=== PATIENT | female | born 1995 | race Caucasian/White ===

== ENCOUNTER 2016-09-13 13:50 | Emergency (ER) | payer OTHER | END 2016-09-13 15:21 | disposition left against medical advice (07) | LOC: UCCORT 13:50 | DX: R09.89 Other specified symptoms and signs involving the circulatory and respiratory systems (principal); Z53.21 Procedure and treatment not carried out due to patient leaving prior to being seen by health care provider ==

== ENCOUNTER 2017-04-11 16:43 | Emergency (ER) | payer OTHER ==
[2017-04-11 17:39] VITALS: BP 122/75
--- NOTE | 2017-04-11 17:49 | UC ---
Respiratory Complaint HPI - HPI Summary HPI Summary: Pt c/o of waking this morning with difficulty breathing. C?o sudden onset of wheezing. Pt states that she used her albuterol inhaler with relief of symptoms. Pt is sitting comfortably in exam room and denies wheezing or sob currently - History of Current Complaint Chief Complaint: UCGeneralIllness Stated Complaint: TROUBLE BREATHING Time Seen by Provider: 04/11/17 17:29 Hx Obtained From: Patient Hx Last Menstrual Period: 04/10/17 ?: No Onset/Duration: Sudden Onset, Resolved Severity Initially: Moderate Severity Currently: None Character: Cough: Nonproductive Alleviating Factors: Bronchodilator Associated Signs And Symptoms: Positive: Wheezing - Risk Factors Pulmonary Embolism Risk Factors: Smoking Cardiac Risk Factors: Smoking Pseudomonas Risk Factors: Negative Tuberculosis Risk Factors: Negative - Allergies/Home Medications Allergies/Adverse Reactions: Allergies Allergy/AdvReac Type Severity Reaction Status Date / Time No Known Allergies Allergy Verified 04/11/17 17:30 PMH/Surg Hx/FS Hx/Imm Hx Previously Healthy: Yes Respiratory History: Asthma - Surgical History Surgical History: None - Family History Known Family History: Positive: Unknown - Social History Occupation: Employed Full-time Lives: With Family Alcohol Use: Weekly Substance Use Type: Marijuana Substance Use Comment - Amount & Last Used: yesterday 04/10/17 Smoking Status (MU): Current Every Day Smoker Type: Cigarettes Amount Used/How Often: 2-3 PPD Have You Smoked in the Last Year: Yes Household Exposure Type: Cigarettes - Immunization History Most Recent Influenza Vaccination: no 2017 Vaccination Up to Date: Yes Review of Systems Constitutional: Negative Skin: Negative Eyes: Negative ENT: Negative Respiratory: Shortness Of Breath, Cough Cardiovascular: Negative Gastrointestinal: Negative Genitourinary: Negative Motor: Negative Neurovascular: Negative Musculoskeletal: Negative Neurological: Negative Psychological: Negative Is Patient Immunocompromised?: No All Other Systems Reviewed And Are Negative: Yes Physical Exam Triage Information Reviewed: Yes Appearance: Well-Appearing Vital Signs: Initial Vital Signs Temp 98.2 F 04/11/17 17:30 Pulse 79 04/11/17 17:30 Resp 22 04/11/17 17:30 BP 122/75 04/11/17 17:30 Pulse Ox 100 04/11/17 17:30 Vital Signs Reviewed: Yes Eye Exam: Normal ENT Exam: Normal Dental Exam: Normal Neck exam: Normal Respiratory Exam: Normal Cardiovascular Exam: Normal Musculoskeletal Exam: Normal Neurological Exam: Normal Psychological Exam: Normal Skin Exam: Normal UC Diagnostic Evaluation - Laboratory O2 Sat by Pulse Oximetry: 100 Respiratory Course/Dx - Differential Dx/Diagnosis Differential Diagnosis/HQI/PQRI: Asthma, Bronchitis Provider Diagnoses: reactive airway Discharge - Discharge Plan Condition: Stable Disposition: HOME Prescriptions: Albuterol HFA INHALER* [Ventolin HFA Inhaler*] 2 puff INH Q4H PRN #1 mdi PRN Reason: Sob/Wheezing methylPREDNISolone TAB* [Medrol TAB*] 4 - 8 mg PO .SEE SALVADOR #1 salvador Patient Education Materials: Reactive Airways Disease (ED) Referrals: No Primary Care Phys,NOPCP [Primary Care Provider] - As Soon As Possible
== END 2017-04-11 17:56 | disposition home or self-care (01) ==
LOC: UCCORT 16:43
DX: J45.909 Unspecified asthma, uncomplicated (principal); F12.90 Cannabis use, unspecified, uncomplicated; F17.210 Nicotine dependence, cigarettes, uncomplicated
CPT/HCPCS: 99212; G0463

== ENCOUNTER 2017-04-23 11:16 | Emergency (ER) | payer OTHER | END 2017-04-23 12:00 | disposition left against medical advice (07) | LOC: UCCORT 11:16 | DX: R09.89 Other specified symptoms and signs involving the circulatory and respiratory systems (principal); Z53.21 Procedure and treatment not carried out due to patient leaving prior to being seen by health care provider ==

== ENCOUNTER → 2017-04-26 13:59 | Emergency (ER) | payer OTHER | END | disposition left against medical advice (07) | LOC: UCCORT 13:59 | DX: R05 Cough (principal); Z53.21 Procedure and treatment not carried out due to patient leaving prior to being seen by health care provider ==

== ENCOUNTER 2017-06-10 21:06 | Emergency (ER) | payer OTHER ==
[2017-06-10 21:24] VITALS: BP 106/64
[2017-06-10] MEDS ORDERED: Amoxicillin PO (*) 500 MG CAP PO ONE (21:47)
--- NOTE | 2017-06-10 21:53 | UC ---
Ear Complaint HPI - HPI Summary HPI Summary: 21 yo female with about a week hx of sore throat and left EA ear ache is the worse symptoms states her tonsils are alway large no fever decreased hearing left ear - History of Current Complaint Chief Complaint: UCRespiratory Stated Complaint: SORE THROAT/EAR PAIN Time Seen by Provider: 06/10/17 21:41 Hx Obtained From: Patient Hx Last Menstrual Period: 06/05/17 Onset/Duration: Gradual Onset, Lasting Days Severity Initially: Mild Severity Currently: Severe Pain Intensity: 8 Pain Scale Used: 0-10 Numeric Alleviating Factors: Nothing Associated Signs/Symptoms: Positive: URI Symptoms - Allergies/Home Medications Allergies/Adverse Reactions: Allergies Allergy/AdvReac Type Severity Reaction Status Date / Time No Known Allergies Allergy Verified 06/10/17 21:24 Home Medications: Home Medications Guaifen/Dextromethorphan/PE [Robitussin Childrens Coug] 1 liq PO ONCE PRN [History Confirmed 06/10/17] PMH/Surg Hx/FS Hx/Imm Hx Previously Healthy: Yes - recent fentenyl OD - Surgical History Surgical History: None - Family History Known Family History: Positive: Hypertension - Social History Alcohol Use: None Substance Use Type: Marijuana, Other Substance Use Comment - Amount & Last Used: over dosed on fentanol 3 weeks ago, in out pt rehab Smoking Status (MU): Heavy Every Day Tobacco Smoker Type: Cigarettes Amount Used/How Often: 1/2 ppd Length of Time of Smoking/Using Tobacco: since age 20 Have You Smoked in the Last Year: Yes Household Exposure Type: Cigarettes - Immunization History Most Recent Influenza Vaccination: no 2017 Vaccination Up to Date: Yes Review of Systems Constitutional: Negative Skin: Negative Eyes: Negative ENT: Sore Throat, Ear Ache Respiratory: Negative Cardiovascular: Negative Gastrointestinal: Negative Genitourinary: Negative Motor: Negative Neurovascular: Negative Musculoskeletal: Negative Neurological: Negative Psychological: Negative Is Patient Immunocompromised?: No All Other Systems Reviewed And Are Negative: Yes Physical Exam Triage Information Reviewed: Yes Appearance: Well-Appearing, No Pain Distress, Well-Nourished Vital Signs: Initial Vital Signs Temp 97.4 F 06/10/17 21:17 Pulse 89 06/10/17 21:17 Resp 16 06/10/17 21:17 BP 106/64 06/10/17 21:17 Pulse Ox 99 06/10/17 21:17 Vital Signs Reviewed: Yes Eyes: Positive: Conjunctiva Clear ENT: Positive: TM bulging - left, TM red - left, Tonsillar swelling Neck: Positive: Supple, Nontender, No Lymphadenopathy Respiratory: Positive: Lungs clear, Normal breath sounds, No respiratory distress, No accessory muscle use Cardiovascular: Positive: RRR, No Murmur Musculoskeletal: Positive: ROM Intact, No Edema Neurological: Positive: Alert Psychological Exam: Normal Skin Exam: Normal Ear Complaint Course/Dx - Differential Dx/Diagnosis Provider Diagnoses: left otitis media Discharge - Discharge Plan Condition: Stable Disposition: HOME Prescriptions: Amoxicillin PO (*) [Amoxicillin 875 MG (*)] 875 mg PO BID #20 tab Patient Education Materials: Ear Infection (ED) Referrals: Malissa Shah MD [Primary Care Provider] - 4 Days (if pain not better)
== END 2017-06-10 21:55 | disposition home or self-care (01) ==
LOC: UCCORT 21:06
DX: H66.92 Otitis media, unspecified, left ear (principal); F17.210 Nicotine dependence, cigarettes, uncomplicated
CPT/HCPCS: 87651; 99212; A9270-GY; G0463

== ENCOUNTER 2019-03-27 13:54 | Emergency (ER) | payer OTHER ==
--- OUTSIDE RECORDS SUMMARY | 2019-03-27 14:26 | XMS REPORT | Continuity of Care Document ---
:1995 External Reference #:[id number] Author Name MADELYN Hernandez (transmitted by agent of provider Deepti Llanes) Address [address] [place] [address] Problems Active Problems Provider Date Cigarette smoker MADELYN Hernandez Onset: 01/07/2019 Abnormal cervical Papanicolaou smear MADELYN Hernandez Onset: 02/19/2019 Social History Type Date Description Comments Sex Unknown ETOH Use Occasionally consumes alcohol Tobacco Use Start: Unknown Heavy tobacco smoker (more than 10 cigarettes/day) Recreational Drug Use Sporadically uses Marijuana Smoking Status Reviewed: 02/19/19 Heavy tobacco smoker (more than 10 cigarettes/day) Allergies, Adverse Reactions, Alerts Description No Known Drug Allergies Medications Description No Active Medications Immunizations CPT Code Status Date Vaccine Reaction Lot # [id number] Given 02/19/2019 Influ Virus Vaccine, risks and benefits Flu>3yr/ Quadrivalent, Split discussed [id number] Virus, Im Fluzone not PF Vital Signs Date Vital Result Comment 02/19/2019 1:17pm Height 63 inches 5'3" Weight 154.00 lb Heart Rate 93 /min BP Systolic 98 mmHg BP Diastolic 62 mmHg Body Temperature 98.9 F O2 % BldC Oximetry 98 % BMI (Body Mass Index) 27.3 kg/m2 Results Test Acquired Date Facility Test Result H/L Range Note Laboratory test 02/19/2019 [facility] Urine HCG positive finding Procedures Description No Information Available Medical Devices Description No Information Available Encounters Description No Information Available Assessments Date Code Description Provider 02/19/2019 Z3A.00 Weeks of gestation of not specified MADELYN Hernandez 02/19/2019 M46.1 Sacroiliitis, not elsewhere classified MADELYN Hernandez 02/19/2019 M54.9 Dorsalgia, unspecified MADELYN Hernandez 02/19/2019 Z23 Encounter for immunization MADELYN Hernandez 02/19/2019 F43.23 Adjustment disorder with mixed anxiety and MADELYN Hernandez depressed mood Plan of Treatment Future Appointment(s):04/07/2019 1:30 pm - MADELYN Hernandez at [facility]02/19/2019 - Ksenia Moraes PAZ3A.00 Weeks of gestation of not specifiedComments:Discussed options.M46.1 Sacroiliitis, not elsewhere classifiedNew Therapy:Physical ClunzlaL28.9 Dorsalgia, unspecifiedNew Therapy: Physical IffrnftA65 Encounter for immunizationComments:Seasonal flu vaccine administered today.F43.23 Adjustment disorder with mixed anxiety and depressed moodComments:Discussed options for treatmentAllNew Medication:No Active Medications -Follow up:6 wks Functional Status Description No Information Available Mental Status Description No Information Available Referrals Description No Information Available
--- OUTSIDE RECORDS SUMMARY | 2019-03-27 14:26 | XMS REPORT | Continuity of Care Document ---
:1995 Author Organization [facility] Address [address] [place] [address] Phone Care Team Providers Name Role Phone Grant Perkins RESEARCH INSTRUMENTATION TECHNICIAN, Mazin Unavailable Unavailable Allergies, Adverse Reactions, Alerts Substance Reaction Status Criticality No Known Allergies Active No Information Medications Medication Instructions Dosage Effective Dates Status Comments (start - stop) Acetaminophen Pain Relief 2 PO q8 hrs prn - Active 500 mg tablet pain, max dose 6 tabs per day (max 3000mg/day) ibuprofen 800 mg tablet 1 tab po q 8 hrs - Active prn pain metronidazole 500 mg 1 tab po the - Active tablet evening before misoprostol MICRhoGAM Ultra-Filtered 50 mcg IM - Active PLUS 250 unit (50 mcg) administered to pt intramuscular syringe in clinic Mifeprex 200 mg tablet 1 tab po - Active administered to pt in clinic medroxyprogesterone 150 IM Q 10-13 weeks - Active mg/mL intramuscular suspension misoprostol 200 mcg 4 tabs buccally - No Longer tablet 24-48 hrs after Active mifepristone (#4) Problems Condition Effective Dates (start - Clinical Status Comments stop) Encounter for test, result positive Problems related to unwanted Encounter for oth general cnsl and advice on contraception Encntr screen for infections w sexl mode of transmiss Encounter for blood typing Encounter for elective termination of Encounter for initial prescription of injectable contracep Procedures Procedure Date CHYLMD TRACH, DNA, AMP PROBE N.GONORRHOEAE, DNA, AMP PROB ROUTINE VENIPUNCTURE BLOOD TYPING, RH (D) HEMOGLOBIN URINE TEST Metronidazole (Flagyl) 500mg MicrhogamD immune globulin 50 mcg Mifeprex, oral, 200 mg Misoprostol #4 oral, 200 mcg INJECTION DEPO/ROCEPH Medroxyprogesterone Inj. TRANSVAGINAL ULTRASOUND PRE AB OFFICE/OUTPATIENT VISIT, NEW INJECTION ADMINISTRATION Results Test Name Date and Time Measure Units Reference Range Abnormal Flag Status Comments Panel Description: High Sensitivity Urine Test Final High Sensitivity Urine Test 16:02:15 Positive Final Panel Description: Hemoglobin Final Hemoglobin 16:02:04 12.60 gm/dL Final NOTE: This patient has pending results not included in this document. Advance Directives Directive Yes / No Effective Date File Name No Information Encounters Encounter Practice Location Reason(s) Diagnoses Date Provider Providers Description For Visit Copied on Encounter [facility] Medication Encounter for Grant Perkins Referring [facility] Provider: Central & (chief test, result 9 . [address] [facility], complaint)W positiveProble [place] , [address] Up MAB ms related to [address], [facility], (chief unwanted [facility], complaint) pregnancyEncou [place], [place], [place], nter for [facility] [id number], [place], [id number], general cnsl . [facility] and advice on tel:[phone]. tel:[phone] tel:[phone] flntr screen [id number] for infections w sexl mode of transmissEncou nter for blood typingEncounte r for elective termination of pregnancyEncou nter for initial prescription of injectable contracep Family History Family Member Diagnosis Age At Onset Father Coronary heart disease before age 55 49 1st degree relative No hx of osteoporosis 1st degree relative No hx of venous thromboembolism 1st degree relative No hx of cancer of breast, colon, endometrium or ovary Immunizations Vaccine Date Status Comments No Information Payers Payer name Insurance type Covered alliance party ID Authorization(s) Narinder THOMAS [facility] CI [id number] Social History Type Description Quantity Date Captured Comments Alcohol Use Details Unknown Caffeine Use Unknown Details Tobacco Use Status Light cigarette smoker (1-9 cigs/day) Smoking Status Light tobacco smoker Smoking Tobacco Use Cigarette: No Details Available Cigarette: 7 Cigarettes per day Details Sex Female Vital Signs Date / Height Weight BMI Pulse Blood Temperature Respiratory Body Head BMI Pulse Inhaled Time: Rate Pressure Rate Surface Circumference percentile Ox Ox Area 64.00 163.00 27.9 in lbs 8 mm[Hg] 3:20 kg/m PM eter (2) Chief Complaint And Reason For Visit Most recent encounter only, dated 03/07/2019 15:15'. Medication (chief complaint)Work Up MAB (chief complaint) Reason For Referral Reason For Referral No Information Plan Of Treatment Date Type Action Status Goal Tobacco cessation counseling completed Appointment Pippa Brown BOOKGREGORY History Of Present Illness Encounter Date Complaint History Of Present Illness No Information Functional Status Date Functional Assessment No Information Medications Administered Medication Instructions Dosage Effective Dates (start - stop) Status Comments No Information Instructions Date Instruction Additional Information No Information Assessments Type Assessment Date assessment Encounter for test, result positive assessment Problems related to unwanted assessment Encounter for oth general cnsl and advice on contraception 2018 assessment Encntr screen for infections w sexl mode of transmiss assessment Encounter for blood typing assessment Encounter for elective termination of assessment Encounter for initial prescription of injectable contracep 2018 Goals Health Concern Goal Type Priority Status Date No Information Medical Equipment Description Device [place] Device Identifier Effective Dates (start - stop ) Status No Information Mental Status Date Cognitive Assessment Orientation - Oriented to time, place, person, situation.Normal Orientation Health Concerns Observation Date No Information Concern Status Date No Information Physical Examination Exam Findings Details Neurological Normal Level of consciousness - Normal. Orientation - Normal. Psychiatric Normal Orientation - Oriented to time, place, person & situation.
--- OUTSIDE RECORDS SUMMARY | 2019-03-27 14:26 | XMS REPORT | Continuity of Care Document ---
:1995 Author Organization [facility] Address [address] [place] [address] Phone Care Team Providers Name Role Phone Dariana Rodriguez MD Unavailable Unavailable Allergies, Adverse Reactions, Alerts Substance Reaction Status Criticality No Known Allergies Active No Information Medications Medication Instructions Dosage Effective Dates Status Comments (start - stop) ibuprofen 800 mg tablet 1 tab po q 8 hrs - Active prn pain metronidazole 500 mg tablet 1 tab po the - Active evening before misoprostol MICRhoGAM Ultra-Filtered 50 mcg IM - Active PLUS 250 unit (50 mcg) administered to pt intramuscular syringe in clinic Mifeprex 200 mg tablet 1 tab po - Active administered to pt in clinic medroxyprogesterone 150 IM Q 10-13 weeks - Active mg/mL intramuscular suspension Problems Condition Effective Dates (start - Clinical Status Comments stop) Encounter for test, result positive Problems related to unwanted Encounter for oth general cnsl and advice on contraception Encntr screen for infections w sexl mode of transmiss Encounter for blood typing Encounter for elective termination of Encounter for initial prescription of injectable contracep RhD positive - Active Procedures Procedure Date No Information Results Test Name Date and Time Measure Units Reference Range Abnormal Flag Status Comments No Information Advance Directives Directive Yes / No Effective Date File Name No Information Encounters Encounter Practice Location Reason(s) Diagnoses Date Provider Providers Description For Visit Copied on Encounter [facility] Care No Potter Dariana. Parenthood Coordination Information [address] [facility] [address], [facility], [place], [address] [facility], [id number], [facility]. [place], tel:[phone] tel:[phone] [facility] Encounter Grant Perkins Referring [facility] [place] for [facility] Provider: Central & [address] . [address] [facility], test, result [facility], [address] [facility], [address] [place] [address], lems related [facility], to unwanted [place], [place], pregnancyEnc [id number], [facility], [id number], ounter for [facility] ot general tel:[phone]. tel:[phone] and [phone] tel:[phone] [place] [phone] contraceptio nEncntr screen for infections w sexl mode of transmissEnc ounter for blood typingEncoun ter for elective termination of pregnancyEnc ounter for initial prescription of injectable contracep Family History Family Member Diagnosis Age At Onset Father Coronary heart disease before age 55 49 1st degree relative No hx of osteoporosis 1st degree relative No hx of venous thromboembolism 1st degree relative No hx of cancer of breast, colon, endometrium or ovary Immunizations Vaccine Date Status Comments No Information Payers Payer name Insurance type Covered green party ID Authorization(s) [facility] CI [id number] Social History Type Description Quantity Date Captured Comments Alcohol Use Details Unknown Caffeine Use Details Unknown Tobacco Use Status Smoking Status Light tobacco smoker Sex Female Vital Signs Date / Height Weight BMI Pulse Blood Temperature Respiratory Body Head BMI Pulse Inhaled Time: Rate Pressure Rate Surface Circumference percentile Ox Ox Area No Information Chief Complaint And Reason For Visit No Information Reason For Referral Reason For Referral No Information Plan Of Treatment Date Type Action Status Goal Tobacco cessation counseling completed History Of Present Illness Encounter Date Complaint History Of Present Illness No Information Functional Status Date Functional Assessment No Information Medications Administered Medication Instructions Dosage Effective Dates (start - stop) Status Comments No Information Instructions Date Instruction Additional Information No Information Assessments Type Assessment Date No Information Goals Health Concern Goal Type Priority Status Date No Information Medical Equipment Description Device [place] Device Identifier Effective Dates (start - stop ) Status No Information Mental Status Date Cognitive Assessment No Information Health Concerns Observation Date No Information Concern Status Date No Information Physical Examination Exam Findings Details No Information
[2019-03-27 14:35] VITALS: BP 91/58
--- NOTE | 2019-03-27 14:39 | UC ---
Throat Pain/Nasal Miguel Ángel HPI - HPI Summary HPI Summary: Patient's 23-year-old female presenting with complaint of sore throat, bilateral ear pain, loss of voice, body aches, and chills that began yesterday. Denies known fevers. Denies nasal congestion. Denies difficulty swallowing. Denies cough, shortness breath, wheezing, difficulty breathing. Denies N/V. Denies taking anything for symptom relief. - History of Current Complaint Chief Complaint: UCGeneralIllness Stated Complaint: SORE THROAT, EAR PAIN Hx Obtained From: Patient Hx Last Menstrual Period: depo Pain Intensity: 8 Pain Scale Used: 0-10 Numeric - Allergies/Home Medications Allergies/Adverse Reactions: Allergies Allergy/AdvReac Type Severity Reaction Status Date / Time No Known Allergies Allergy Verified 03/27/19 14:30 Home Medications: Home Medications medroxyPROGESTERone ACETATE* [DEPO-Provera] 150 mg IM SEE INSTRUCTIONS 03/27/19 [History Confirmed 03/27/19] PMH/Surg Hx/FS Hx/Imm Hx - Surgical History Surgical History: None - Family History Known Family History: Positive: Hypertension - Social History Alcohol Use: None Substance Use Type: None Substance Use Comment - Amount & Last Used: over dosed on fentanol 3 weeks ago, in out pt rehab Smoking Status (MU): Heavy Every Day Tobacco Smoker Type: Cigarettes Amount Used/How Often: 1/2 ppd Length of Time of Smoking/Using Tobacco: since age 20 Have You Smoked in the Last Year: Yes Household Exposure Type: Cigarettes - Immunization History Most Recent Influenza Vaccination: no 2017 Vaccination Up to Date: Yes Review of Systems All Other Systems Reviewed And Are Negative: Yes Constitutional: Positive: Chills. Negative: Fever ENT: Positive: Sore Throat, Ear Ache - b/l, Other - loss of voice. Negative: Sinus Congestion Respiratory: Positive: Negative. Negative: Shortness Of Breath, Cough Cardiovascular: Positive: Negative Gastrointestinal: Positive: Negative. Negative: Vomiting, Nausea Musculoskeletal: Positive: Myalgia Neurological: Positive: Headache Physical Exam Triage Information Reviewed: Yes Appearance: Well-Appearing, No Pain Distress, Well-Nourished Vital Signs: Initial Vital Signs Temp 97.9 F 03/27/19 14:31 Pulse 87 03/27/19 14:31 Resp 16 03/27/19 14:31 BP 91/58 03/27/19 14:31 Pulse Ox 99 03/27/19 14:31 Lab Results 03/27/19 03/27/19 Range/Units 14:46 14:49 Influenza A (Rapid) Negative (Negative) Influenza B (Rapid) Negative (Negative) Group A Strep Rapid Negative (Negative) Vital Signs Reviewed: Yes Eyes: Positive: Conjunctiva Clear ENT: Positive: Hearing grossly normal, Pharyngeal erythema, TMs normal, Tonsillar swelling - significant tonsilar swelling equal b/l, Hoarse voice, Uvula midline. Negative: Nasal congestion, Nasal drainage, Tonsillar exudate, Trismus, Muffled voice Neck: Positive: Supple, Nontender, Enlarged Nodes @ - tonsilar Respiratory Exam: Normal Respiratory: Positive: Lungs clear, Normal breath sounds, No respiratory distress. Negative: Crackles, Rhonchi, Stridor, Wheezing Cardiovascular Exam: Normal Cardiovascular: Positive: RRR Neurological: Positive: Alert Psychological: Positive: Age Appropriate Behavior Throat Pain/Nasal Course/Dx - Course Course Of Treatment: Patient with negative rapid strep and flu tests. I treated patient for possible bacterial source of infection based on history and physical exam findings - significant tonsilar swelling and pain. No drooling, stridor, or difficulty breathing/swallowing. I instructed to continue with symptomatic treatment and follow up with pcp if symptoms persist. Instructed to go to ED with any new or worsening symptoms. Patient voiced understanding and agreed with treatment plan. - Differential Dx/Diagnosis Differential Diagnosis/HQI/PQRI: Mononucleosis, Pharyngitis, Tonsillitis, URI Provider Diagnosis: Pharyngitis, Laryngitis Discharge ED - Sign-Out/Discharge Documenting (check all that apply): Patient Departure All imaging exams completed and their final reports reviewed: No Studies - Discharge Plan Condition: Stable Disposition: HOME Prescriptions: Penicillin VK TAB* [Penicillin VK 250 mg Tab*] 500 mg PO BID #20 tab Patient Education Materials: Pharyngitis (ED), Laryngitis (ED) Referrals: Malissa Shah MD [Primary Care Provider] - If Needed Additional Instructions: As discussed, you tested negative the flu and for strep throat today, but will be treated for possible bacterial source of infection. Take the full course of penicillin as prescribed. You may take ibuprofen and/or tylenol as directed for fever and pain relief. You may use over the counter throat sprays or lozenges for symptomatic relief. Get plenty of rest and increase your fluid intake. Follow up with your primary care provider if symptoms do not resolve within 10 days. Go to the emergency room if you experience new or worsening symptoms. - Billing Disposition and Condition Condition: STABLE Disposition: Home - Attestation Statements Provider Attestation: Patient not seen by me I was available for consult Chart reviewed BRANDI
[2019-03-27 15:01] LABS: Influenza A Molecular NEGATIVE (Negative); Influenza B Molecular NEGATIVE (Negative)
== END 2019-03-27 15:32 | disposition home or self-care (01) ==
LOC: UCCORT 13:54
DX: J02.9 Acute pharyngitis, unspecified (principal); J04.0 Acute laryngitis; H92.03 Otalgia, bilateral; F17.210 Nicotine dependence, cigarettes, uncomplicated
CPT/HCPCS: 87651; 99212; G0463